=== PATIENT | male | born 1965 | race Caucasian/White ===

== ENCOUNTER 2017-01-02 12:20 | Emergency (ER) | payer SELFPAY ==
[~2017-01-02] VITALS: Ht 193 cm; Wt 98.5 kg
--- OUTSIDE RECORDS SUMMARY | 2017-01-02 12:22 | XMS REPORT | Referral Summary ---
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 Role Phone Sammi Stone Primary Care Physician [phone] Encounter [facility] [id number] Date(s): 01/23/15 - 01/23/15 [facility] [address] [place] [id number] Discharge Diagnosis: Visit for get2play man health check Discharge Diagnosis: OTHER MALAISE AND FATIGUE Discharge Diagnosis: Screening for other and unspecified cardiovascular conditions Discharge Diagnosis: Erectile dysfunction Discharge Diagnosis: Tobacco user Discharge Disposition: 01-Home or Self Care Attending Physician: Kris Stone DO Admitting Physician: Kris Stone DO Vital Signs Most recent to 1 oldest [Reference Range]: Peripheral Pulse 66 bpm Rate [60-100 bpm] (01/23/15 3:39 PM) Blood Pressure 124/80 mmHg [90-140/60-90 mmHg] (01/23/15 3:39 PM) SpO2 98 % (01/23/15 3:39 PM) Problem List Condition Effective Dates Status Health Status Informant Dyslipidemia(Confirm Active ed) Fatigue(Confirmed) Active Erectile Active dysfunction(Confirme d) Tobacco Active patient user(Confirmed) Allergies, Adverse Reactions, Alerts Substance Reaction Severity Status amoxicillin SWELLING Active Medications No Known Medications Results No data available for this section Immunizations No data available for this section Procedures Procedure Date Related Diagnosis Body Site Surgery on left fifth toe Social History Social History Type Response Smoking Status Current every day smoker; Tobacco use per day: Pack; Number of years: 30; Total pack years: 45; Started at age: 17 Assessment and Plan Extracted from: Title: Ambulatory Patient Education Author: Kris Stone DO Date: Family Medicine Preventive Care for Adults, Male A healthy lifestyle and preventive care can promote health and wellness. Preventive health guidelines for men include the following branham practices: A routine yearly physical is a good way to check with your health care provider about your health and preventative screening. It is a chance to share any concerns and updates on your health and to receive a thorough exam. Visit your dentist for a routine exam and preventative care every 6 months. [place] your teeth twice a day and floss once a day. Good oral hygiene prevents tooth decay and gum disease. The frequency of eye exams is based on your age, health, family medical history, use of contact lenses, and other factors. Follow your health care provider's recommendations for frequency of eye exams. Eat a healthy diet. Foods such as vegetables, fruits, whole grains, low- fat dairy products, and lean protein foods contain the nutrients you need without too many calories. Decrease your intake of foods high in solid fats, added sugars, and salt. Eat the right amount of calories for you.Get information about a proper diet from your health care provider, if necessary. Regular physical exercise is one of the most important things you can do for your health. Most adults should get at least 150 minutes of moderate- intensity exercise (any activity that increases your heart rate and causes you to sweat) each week. In addition, most adults need muscle-strengthening exercises on 2 or more days a week. Maintain a healthy weight. The body mass index (BMI) is a screening tool to identify possible weight problems. It provides an estimate of body fat based on height and weight. Your health care provider can find your BMI and can help you achieve or maintain a healthy weight.For adults 20 years and older: A BMI below 18.5 is considered underweight. A BMI of 18.5 to 24.9 is normal. A BMI of 25 to 29.9 is considered overweight. A BMI of 30 and above is considered obese. Maintain normal blood lipids and cholesterol levels by exercising and minimizing your intake of saturated fat. Eat a balanced diet with plenty of fruit and vegetables. Blood tests for lipids and cholesterol should begin at age 20 and be repeated every 5 years. If your lipid or cholesterol levels are high, you are over 50, or you are at high risk for heart disease, you may need your cholesterol levels checked more frequently.Ongoing high lipid and cholesterol levels should be treated with medicines if diet and exercise are not working. If you smoke, find out from your health care provider how to quit. If you do not use tobacco, do not start. Lung cancer screening is recommended for adults aged 5580 years who are at high risk for developing lung cancer because of a history of smoking. A yearly low-dose CT scan of the lungs is recommended for people who have at least a 84-tynn-kejg history of smoking and are a current smoker or have quit within the past 15 years. A pack year of smoking is smoking an average of 1 pack of cigarettes a day for 1 year (for example: 1 pack a day for 30 years or 2 packs a day for 15 years). Yearly screening should continue until the smoker has stopped smoking for at least 15 years. Yearly screening should be stopped for people who develop a health problem that would prevent them from having lung cancer treatment. If you choose to drink alcohol, do not have more than 2 drinks per day. One drink is considered to be 12 ounces (355 mL) of beer, 5 ounces (148 mL) of wine, or 1.5 ounces (44 mL) of liquor. Avoid use of street drugs. Do not share needles with anyone. Ask for help if you need support or instructions about stopping the use of drugs. High blood pressure causes heart disease and increases the risk of stroke. Your blood pressure should be checked at least every 12 years. Ongoing high blood pressure should be treated with medicines, if weight loss and exercise are not effective. If you are 4579 years old, ask your health care provider if you should take aspirin to prevent heart disease. Diabetes screening involves taking a blood sample to check your fasting blood sugar level. This should be done once every 3 years, after age 45, if you are within normal weight and without risk factors for diabetes. Testing should be considered at a younger age or be carried out more frequently if you are overweight and have at least 1 risk factor for diabetes. Colorectal cancer can be detected and often prevented. Most routine colorectal cancer screening begins at the age of 50 and continues through age 75. However, your health care provider may recommend screening at an earlier age if you have risk factors for colon cancer. On a yearly basis, your health care provider may provide home test kits to check for hidden blood in the stool. Use of a small camera at the end of a tube to directly examine the colon (sigmoidoscopy or colonoscopy ) can detect the earliest forms of colorectal cancer. Talk to your health care provider about this at age 50, when routine screening begins. Direct exam of the colon should be repeated every 510 years through age 75, unless early forms of precancerous polyps or small growths are found. People who are at an increased risk for hepatitis B should be screened for this virus. You are considered at high risk for hepatitis B if: You were born in a country where hepatitis B occurs often. Talk with your health care provider about which countries are considered high-risk. Your parents were born in a high-risk country and you have not received a shot to protect against hepatitis B (hepatitis B vaccine) . You have HIV or AIDS. You use needles to inject street drugs. You live with, or have sex with, someone who has hepatitis B. You are a man who has sex with other men (MSM). You get hemodialysis treatment. You take certain medicines for conditions such as cancer, organ transplantation, and autoimmune conditions. Hepatitis C blood testing is recommended for all people born from 1945 through 1965 and any individual with known risks for hepatitis C. Practice safe sex. Use condoms and avoid high-risk sexual practices to reduce the spread of sexually transmitted infections (STIs). STIs include gonorrhea, chlamydia, syphilis, trichomonas, herpes, HPV, and human immunodeficiency virus (HIV). Herpes, HIV, and HPV are viral illnesses that have no cure. They can result in disability, cancer, and . A one-time screening for abdominal aortic aneurysm (AAA) and surgical repair of large AAAs by ultrasound are recommended for men ages 65 to 75 years who are current or former smokers. Healthy men should no longer receive prostate-specific antigen (PSA) blood tests as part of routine cancer screening. Talk with your health care provider about prostate cancer screening. Testicular cancer screening is not recommended for adult males who have no symptoms. Screening includes self-exam, a health care provider exam, and other screening tests. Consult with your health care provider about any symptoms you have or any concerns you have about testicular cancer. Use sunscreen. Apply sunscreen liberally and repeatedly throughout the day. You should seek shade when your shadow is shorter than you. Protect yourself by wearing long sleeves, pants, a wide-brimmed hat, and sunglasses year round, whenever you are outdoors. Once a month, do a whole-body skin exam, using a mirror to look at the skin on your back. Tell your health care provider about new moles, moles that have irregular borders, moles that are larger than a pencil eraser, or moles that have changed in shape or color. Stay current with required vaccines (immunizations ). Influenza vaccine. All adults should be immunized every year. Tetanus, diphtheria, and acellular pertussis (Td, Tdap) vaccine. An adult who has not previously received Tdap or who does not know his vaccine status should receive 1 dose of Tdap. This initial dose should be followed by tetanus and diphtheria toxoids (Td) booster doses every 10 years. Adults with an unknown or incomplete history of completing a 3-dose immunization series with Td -containing vaccines should begin or complete a primary immunization series including a Tdap dose. Adults should receive a Td booster every 10 years. Varicella vaccine. An adult without evidence of immunity to varicella should receive 2 doses or a second dose if he has previously received 1 dose. Human papillomavirus (HPV) vaccine. Males aged 1321 years who have not received the vaccine previously should receive the 3-dose series. Males aged 22 26 years may be immunized. Immunization is recommended through the age of 26 years for any male who has sex with males and did not get any or all doses earlier. Immunization is recommended for any person with an immunocompromised condition through the age of 26 years if he did not get any or all doses earlier. During the 3-dose series, the second dose should be obtained 48 weeks after the first dose. The third dose should be obtained 24 weeks after the first dose and 16 weeks after the second dose. Zoster vaccine. One dose is recommended for adults aged 60 years or older unless certain conditions are present. Measles, mumps, and rubella (MMR) vaccine. Adults born before 1954 generally are considered immune to measles and mumps. Adults born in 1954 or later should have 1 or more doses of MMR vaccine unless there is a contraindication to the vaccine or there is laboratory evidence of immunity to each of the three diseases. A routine second dose of MMR vaccine should be obtained at least 28 days after the first dose for students attending postsecondary schools, health care workers, or international travelers. People who received inactivated measles vaccine or an unknown type of measles vaccine during should receive 2 doses of MMR vaccine. People who received inactivated mumps vaccine or an unknown type of mumps vaccine before 1978 and are at high risk for mumps infection should consider immunization with 2 doses of MMR vaccine. Unvaccinated health care workers born before 1957 who lack laboratory evidence of measles, mumps, or rubella immunity or laboratory confirmation of disease should consider measles and mumps immunization with 2 doses of MMR vaccine or rubella immunization with 1 dose of MMR vaccine. Pneumococcal 13-valent conjugate (PCV13) vaccine. When indicated, a person who is uncertain of his immunization history and has no record of immunization should receive the PCV13 vaccine. An adult aged 19 years or older who has certain medical conditions and has not been previously immunized should receive 1 dose of PCV13 vaccine. This PCV13 should be followed with a dose of pneumococcal polysaccharide (PPSV23) vaccine. The PPSV23 vaccine dose should be obtained at least 8 weeks after the dose of PCV13 vaccine. An adult aged 19 years or older who has certain medical conditions and previously received 1 or more doses of PPSV23 vaccine should receive 1 dose of PCV13. The PCV13 vaccine dose should be obtained 1 or more years after the last PPSV23 vaccine dose. Pneumococcal polysaccharide (PPSV23) vaccine. When PCV13 is also indicated , PCV13 should be obtained first. All adults aged 65 years and older should be immunized. An adult younger than age 65 years who has certain medical conditions should be immunized. Any person who resides in a long-term or long -term care facility should be immunized. An adult smoker should be immunized. People with an immunocompromised condition and certain other conditions should receive both PCV13 and PPSV23 vaccines. People with human immunodeficiency virus (HIV) infection should be immunized as soon as possible after diagnosis. Immunization during chemotherapy or radiation therapy should be avoided. Routine use of PPSV23 vaccine is not recommended for [place] Indians, [place] Natives, or people younger than 65 years unless there are medical conditions that require PPSV23 vaccine. When indicated, people who have unknown immunization and have no record of immunization should receive PPSV23 vaccine. One-time revaccination 5 years after the first dose of PPSV23 is recommended for people aged 1964 years who have chronic kidney failure, nephrotic syndrome, asplenia, or immunocompromised conditions. People who received 12 doses of PPSV23 before age 65 years should receive another dose of PPSV23 vaccine at age 65 years or later if at least 5 years have passed since the previous dose. Doses of PPSV23 are not needed for people immunized with PPSV23 at or after age 65 years. Meningococcal vaccine. Adults with asplenia or persistent complement component deficiencies should receive 2 doses of quadrivalent meningococcal conjugate (MenACWY-D) vaccine. The doses should be obtained at least 2 months apart. Microbiologists working with certain meningococcal bacteria, recruits, people at risk during an outbreak, and people who travel to or live in countries with a high rate of meningitis should be immunized. A first-year college student up through age 21 years who is living in a residence [place] should receive a dose if he did not receive a dose on or after his 16th birthday. Adults who have certain high-risk conditions should receive one or more doses of vaccine. Hepatitis A vaccine. Adults who wish to be protected from this disease, have certain high-risk conditions, work with hepatitis A-infected animals, work in hepatitis A research labs, or travel to or work in countries with a high rate of hepatitis A should be immunized. Adults who were previously unvaccinated and who anticipate close contact with an international adoptee during the first 60 days after arrival in the [place] from a country with a high rate of hepatitis A should be immunized. Hepatitis B vaccine. Adults who wish to be protected from this disease, have certain high-risk conditions, may be exposed to blood or other infectious body fluids, are household contacts or sex partners of hepatitis B positive people, are clients or workers in certain care facilities, or travel to or work in countries with a high rate of hepatitis B should be immunized. Haemophilus influenzae type b (Hib) vaccine. A previously unvaccinated person with asplenia or sickle cell disease or having a scheduled splenectomy should receive 1 dose of Hib vaccine. Regardless of previous immunization, a recipient of a hematopoietic stem cell transplant should receive a 3-dose series 612 months after his successful transplant. Hib vaccine is not recommended for adults with HIV infection. Preventive Service / Frequency Ages 19 to 39 Blood pressure check. / Every 1 to 2 years. Lipid and cholesterol check. / Every 5 years beginning at age 20. Hepatitis C blood test. / For any individual with known risks for hepatitis C. Skin self-exam. / Monthly. Influenza vaccine. / Every year. Tetanus, diphtheria, and acellular pertussis (Tdap, Td) vaccine. / Consult your health care provider. 1 dose of Td every 10 years. Varicella vaccine. / Consult your health care provider. HPV vaccine. / 3 doses over 6 months, if 26 or younger. Measles, mumps, rubella (MMR) vaccine. / You need at least 1 dose of MMR if you were born in 1957 or later. You may also need a second dose. Pneumococcal 13-valent conjugate (PCV13) vaccine. / Consult your health care provider. Pneumococcal polysaccharide (PPSV23) vaccine. / 1 to 2 doses if you smoke cigarettes or if you have certain conditions. Meningococcal vaccine. / 1 dose if you are age 19 to 21 years and a first -year college student living in a residence [place], or have one of several medical conditions. You may also need additional booster doses. Hepatitis A vaccine. / Consult your health care provider. Hepatitis B vaccine. / Consult your health care provider. Haemophilus influenzae type b (Hib) vaccine. / Consult your health care provider. Ages 40 to 64 Blood pressure check. / Every 1 to 2 years. Lipid and cholesterol check. / Every 5 years beginning at age 20. Lung cancer screening. / Every year if you are aged 5580 years and have a 70-kicm-wfez history of smoking and currently smoke or have quit within the past 15 years. Yearly screening is stopped once you have quit smoking for at least 15 years or develop a health problem that would prevent you from having lung cancer treatment. Fecal occult blood test (FOBT) of stool. / Every year beginning at age 50 and continuing until age 75. You may not have to do this test if you get a colonoscopy every 10 years. Flexible sigmoidoscopy or colonoscopy. / Every 5 years for a flexible sigmoidoscopy or every 10 years for a colonoscopy beginning at age 50 and continuing until age 75. Hepatitis C blood test. / For all people born from 1945 through 1965 and any individual with known risks for hepatitis C. Skin self-exam. / Monthly. Influenza vaccine. / Every year. Tetanus, diphtheria, and acellular pertussis (Tdap/Td) vaccine. / Consult your health care provider. 1 dose of Td every 10 years. Varicella vaccine. / Consult your health care provider. Zoster vaccine. / 1 dose for adults aged 60 years or older. Measles, mumps, rubella (MMR) vaccine. / You need at least 1 dose of MMR if you were born in 1957 or later. You may also need a second dose. Pneumococcal 13-valent conjugate (PCV13) vaccine. / Consult your health care provider. Pneumococcal polysaccharide (PPSV23) vaccine. / 1 to 2 doses if you smoke cigarettes or if you have certain conditions. Meningococcal vaccine. / Consult your health care provider. Hepatitis A vaccine. / Consult your health care provider. Hepatitis B vaccine. / Consult your health care provider. Haemophilus influenzae type b (Hib) vaccine. / Consult your health care provider. Ages 65 and over Blood pressure check. / Every 1 to 2 years. Lipid and cholesterol check./ Every 5 years beginning at age 20. Lung cancer screening. / Every year if you are aged 5580 years and have a 69-ixlt-pumz history of smoking and currently smoke or have quit within the past 15 years. Yearly screening is stopped once you have quit smoking for at least 15 years or develop a health problem that would prevent you from having lung cancer treatment. Fecal occult blood test (FOBT) of stool. / Every year beginning at age 50 and continuing until age 75. You may not have to do this test if you get a colonoscopy every 10 years. Flexible sigmoidoscopy or colonoscopy. / Every 5 years for a flexible sigmoidoscopy or every 10 years for a colonoscopy beginning at age 50 and continuing until age 75. Hepatitis C blood test. / For all people born from 1945 through 1965 and any individual with known risks for hepatitis C. Abdominal aortic aneurysm (AAA) screening. / A one-time screening for ages 65 to 75 years who are current or former smokers. Skin self-exam. / Monthly. Influenza vaccine. / Every year. Tetanus, diphtheria, and acellular pertussis (Tdap/Td) vaccine. / 1 dose of Td every 10 years. Varicella vaccine. / Consult your health care provider. Zoster vaccine. / 1 dose for adults aged 60 years or older. Pneumococcal 13-valent conjugate (PCV13) vaccine. / Consult your health care provider. Pneumococcal polysaccharide (PPSV23) vaccine. / 1 dose for all adults aged 65 years and older. Meningococcal vaccine. / Consult your health care provider. Hepatitis A vaccine. / Consult your health care provider. Hepatitis B vaccine. / Consult your health care provider. Haemophilus influenzae type b (Hib) vaccine. / Consult your health care provider. Family history and personal history of risk and conditions may change your health care provider's recommendations. Document Released: 09/20/2002 Document Revised: 05/15/2014 Document Reviewed: [employer] Patient Information 2014 [employer]. No follow up information was provided. Extracted from: Title: [facility] [employer] [facility]SULT[facility] Well Male Exam, ED, Author: Kris Stone DO Date: 01/23/15 tobacco use Impression and Plan Diagnosis Visit for well man health check (ICD9 V70.0, Discharge, Medical). Tobacco user (ICD9 305.1, Discharge, Patient Stated). Screening for other and unspecified cardiovascular conditions (ICD9 V81.2, Discharge, Medical). OTHER MALAISE AND FATIGUE (ICD9 780.79, Discharge, Medical). Erectile dysfunction (ICD9 607.84, Discharge, Medical). Orders Orders (Selected) Outpatient Orders Ordered Initial Comp Preventive Med 40 to 64 years [place] [id number]: Office Visit Level 1 New 25432: Smoking and tobacco use cessation counseling visit 3 to 10 minutes 10605: Future (On Hold) CBC w/ Differential: CMP: Fasting Lipid Profile: TSH with Reflex Free T4: Testosterone, Total, and Free-Luna: . Ordered fasting lipid profile for cholesterol screening. Repeat well male exam in one year. Seems to be doing well. Ordered labs as above for evaluation of the fatigue and erectile dysfunction. Depending on lab results, may need to treat with testosterone replacement which she is agreeable to if testing comes back positive, or may treat with ED medications. I will inform patient when lab results are back and we will schedule him for follow-up appointment. Also may need to discuss cholesterol results depending on what happens there. I did spend a significant amount of time discussing smoking cessation with him today. He will consider this. Follow-up at next visit. 3-10 minutes spent in tobacco cessation counselling.
--- OUTSIDE RECORDS SUMMARY | 2017-01-02 12:22 | XMS REPORT | Continuity of Care Document ---
Author Author [facility] Organization [facility] Address Unknown Phone Unavailable Allergies Active Description Code Type Severity Reaction Onset Reported/Identified Relationship to Patient Clinical Status Yes amoxicillin NKMA N/A SWELLING 12/09/2013 Yes amoxicillin NKMA N/A SWELLING 12/09/2013 Medications Medication Packaging Start Date Stop Date Route Dosage Sig amoxicillin(amoxicillin) 08/09/2014 01/23/2015 traMADol(traMADol 50 mg oral tablet) 1 tabs 08/09/20142014 Oral 50 mg 1 tabs, Oral, q6hr, May increase dosing to 2 tabs if one is not effective, 24 tabs, PRN: Pain Moderate (4-6) ketorolac(ketorolac) 2 mL 08/09/2014 08/12/2014 IntraMuscular 60 mg 60 mg, IntraMuscular, Once varenicline(Chantix Continuing Month 1 mg oral tablet) 1 tabs 03/14/2015 05/01/2015 Oral 1 mg 1 mg=1 tabs, Oral, BID, for 60 days, 60 tabs, 0 Refill(s) varenicline(Chantix Starter Pack 0.5 mg-1 mg oral tablet) 1 tabs 10/01/2016 11/01/2016 Oral 1 tabs, Oral, BID, as directed on package labeling , 53 tabs, 0 Refill(s) sildenafil(Viagra 100 mg oral tablet) 1 tabs 10/01/20162016 Oral 100 mg 100 mg=1 tabs, Oral, Daily, for 30 days, 1 hour before sexual activity, not to exceed 1 tab per 24 hours, 10 tabs, 2 Refill(s) varenicline(Chantix Continuing Month 1 mg oral tablet) 1 tabs 10/01/2016 11/01/2016 Oral 1 mg 1 mg=1 tabs, Oral, BID, for 4 weeks, 56 tabs, 1 Refill(s) sildenafil(Viagra 100 mg oral tablet) 1 tabs 11/01/20162016 Oral 100 mg 100 mg=1 tabs, Oral, Daily, for 30 days, 1 hour before sexual activity, not to exceed 1 tab per 24 hours, 10 tabs, 2 Refill(s) buPROPion(Wellbutrin SR 150 mg/12 hours oral tablet, extended release) 1 tabs 11/01/2016 Oral 150 mg 150 mg=1 tabs, Oral, BID, Take 1 tab daily for first 3 days, 180 tabs, 0 Refill(s) Problems Date Dx Coded Attending Type Code Diagnosis Diagnosed By 08/12/2014 Charlie Dukes Final 305.1 TOBACCO USE DISORDER 08/12/2014 Charlie Dukes Final 522.5 PERIAPICAL ABSCESS WITHOUT SINUS 08/12/2014 Charlie Dukes Reason 525.9 UNSPECIFIED DISORDER OF THE TEETH AND SUPPORTING STRUCTURES Procedures Results Encounters ACCT No. Visit Date/Time Discharge Status Pt. Type Provider Facility Loc./Unit Complaint [id number] 08/09/2014 13:14:00 2014 14:44:00 DIS Emergency Charlie Dukes [facility] ED dental pain/broken tooth [id number] 11/02/2016 05:17:23 Document Registration [id number] 10/02/2016 05:17:49 Document Registration [id number] 05/28/2015 14:08:00 Document Registration [id number] 05/28/2015 12:39:02 Document Registration [id number] 05/28/2015 10:51:37 Document Registration
--- OUTSIDE RECORDS SUMMARY | 2017-01-02 12:22 | XMS REPORT | Referral Summary ---
Author Author [facility] Organization [facility] Address Unknown Phone Unavailable Care Team Providers Care Sap Pp Consultant Name Role Phone Sammi Stone Primary Care Physician [phone] Encounter [facility] [id number] Date(s): 03/14/15 - 03/14/15 [facility] [address] [place] [address] Discharge Diagnosis: Fatigue Discharge Diagnosis: Dyslipidemia Discharge Diagnosis: Tobacco user Discharge Diagnosis: Erectile dysfunction Discharge Disposition: 01-Home or Self Care Attending Physician: Kris Stone DO Admitting Physician: Kris Stone DO Vital Signs Most recent to 1 oldest [Reference Range]: Peripheral Pulse 96 bpm Rate [60-100 bpm] (03/14/15 8:07 AM) Blood Pressure 122/80 mmHg [90-140/60-90 mmHg] (03/14/15 8:07 AM) SpO2 98 % (03/14/15 8:07 AM) Problem List Condition Effective Dates Status Health [...] Author: Kris Stone DO Date: Family Medicine Cholesterol Cholesterol is a white, waxy, fat-like protein needed by your body in small amounts. The liver makes all the cholesterol you need. Cholesterol is carried from the liver by the blood through the blood vessels. Deposits of cholesterol ( plaque) may build up on blood vessel kasper. These make the arteries narrower and stiffer. Cholesterol plaques increase the risk for heart attack and stroke. You cannot feel your cholesterol level even if it is very high. The only way to know it is high is with a blood test. Once you know your cholesterol levels, you should keep a record of the test results. Work with your health care provider to keep your levels in the desired range. WHAT DO THE RESULTS MEAN? Total cholesterol is a rough measure of all the cholesterol in your blood. LDL is the so-called bad cholesterol. This is the type that deposits cholesterol in the kasper of the arteries. You want this level to be low. HDL is the good cholesterol because it cleans the arteries and carries the LDL away. You want this level to be high. Triglycerides are fat that the body can either burn for energy or store. High levels are closely linked to heart disease. WHAT ARE THE DESIRED LEVELS OF CHOLESTEROL? Total cholesterol below 200. LDL below 100 for people at risk, below 70 for those at very high risk. HDL above 50 is good, above 60 is best. Triglycerides below 150. HOW CAN I LOWER MY CHOLESTEROL? Diet. Follow your diet programs as directed by your health care provider. Choose fish or white meat chicken and turkey, roasted or baked. Limit fatty cuts of red meat, fried foods, and processed meats, such as sausage and lunch meats. Eat lots of fresh fruits and vegetables. Choose whole grains, beans, pasta, potatoes, and cereals. Use only small amounts of olive, corn, or canola oils. Avoid butter, mayonnaise, shortening, or palm kernel oils. Avoid foods with trans fats. Drink skim or nonfat milk and eat low-fat or nonfat yogurt and cheeses. Avoid whole milk, cream, ice cream, egg yolks, and full-fat cheeses. Healthy desserts include damien food cake, danielle snaps, animal crackers, hard candy, popsicles, and low-fat or nonfat frozen yogurt. Avoid pastries, cakes, pies, and cookies. Exercise. Follow your exercise programs as directed by your health care provider. A regular program helps decrease LDL and raise HDL. A regular program helps with weight control. Do things that increase your activity level like gardening, walking, or taking the stairs. Ask your health care provider about how you can be more active in your daily life. Medicine. Take medicine as directed by your health care provider. Medicine may be prescribed by your health care provider to help lower cholesterol and decrease the risk for heart disease. If you have several risk factors, you may need medicine even if your levels are normal. Document Released: 04/19/2002 Document Revised: 07/30/2014 Document Reviewed: [facility] Patient Information 2015 [email or web address] This information is not intended to replace advice given to you by your health care provider. Make sure you discuss any questions you have with your health care provider. No follow up information was provided. Extracted from: Title: OV follow-up lab Author: Kris Stone DO Date: 03/14/15 Impression and Plan Diagnosis Dyslipidemia (ICD9 272.4, Discharge, Medical). Erectile dysfunction (ICD9 607.84, Discharge, Medical). Fatigue (ICD9 780.79, Discharge, Medical). Tobacco user (ICD9 305.1, Discharge, Medical). Orders Orders (Selected) Outpatient Orders Canceled Fasting Lipid Profile: Prescriptions Prescribed Chantix Continuing Month 1 mg oral tablet: 1 mg=1 tabs, Oral, BID, for 60 days, 60 tabs, 0 Refill(s). Patient was given the first 2 weeks of Chantix and I did counselor aid him on how to use the medication. Also gave him some samples of 50 and 100 mg Viagra. Counseled him on appropriate usage. Attempts to get 8 hours of sleep per night to see if this helps with the fatigue. Counseled on dietary changes for the dyslipidemia and did encourage him to perform 150 minutes of aerobic exercise per week divided into at least 3 days. Hopefully stopping smoking will help with this. Call with any questions or concerns before his return visit in one month to follow-up on medications.
--- OUTSIDE RECORDS SUMMARY | 2017-01-02 12:23 | XMS REPORT | Referral Summary ---
Author Author [facility] Organization [facility] Address Unknown Phone Unavailable Care Team Providers Care Boring Machine Set Up Operator Jig Name Role Phone Sammi Stone Primary Care Physician [phone] Encounter [facility] Date(s): 05/01/15 - 05/01/15 [facility], [facility] Medicine [address] [place] [address] Discharge Diagnosis: Fatigue Discharge Diagnosis: Tobacco user Discharge Diagnosis: Erectile dysfunction Discharge Disposition: 01-Home or Self Care Attending Physician: Kris Stone DO Admitting Physician: Kris Stone DO Vital Signs Most recent to 1 oldest [Reference Range]: Peripheral Pulse 89 bpm Rate [60-100 bpm] (05/01/15 11:02 AM) Blood Pressure 130/80 mmHg [90-140/60-90 mmHg] (05/01/15 11:02 AM) SpO2 98 % (05/01/15 11:02 AM) Problem List Condition Effective Dates Status [...] Author: Kris Stone DO Date: Family Medicine Smoking Cessation Quitting smoking is important to your health and has many advantages. However, it is not always easy to quit since nicotine is a very addictive drug. Oftentimes, people try 3 times or more before being able to quit. This document explains the best ways for you to prepare to quit smoking. Quitting takes hard work and a lot of effort, but you can do it. ADVANTAGES OF QUITTING SMOKING You will live longer, feel better, and live better. Your body will feel the impact of quitting smoking almost immediately. Within 20 minutes, blood pressure decreases. Your pulse returns to its normal level. After 8 hours, carbon monoxide levels in the blood return to normal. Your oxygen level increases. After 24 hours, the chance of having a heart attack starts to decrease. Your breath, hair, and body stop smelling like smoke. After 48 hours, damaged nerve endings begin to recover. Your sense of taste and smell improve. After 72 hours, the body is virtually free of nicotine. Your bronchial tubes relax and breathing becomes easier. After 2 to 12 weeks, lungs can hold more air. Exercise becomes easier and circulation improves. The risk of having a heart attack, stroke, cancer, or lung disease is greatly reduced. After 1 year, the risk of coronary heart disease is cut in half. After 5 years, the risk of stroke falls to the same as a nonsmoker. After 10 years, the risk of lung cancer is cut in half and the risk of other cancers decreases significantly. After 15 years, the risk of coronary heart disease drops, usually to the level of a nonsmoker. If you are , quitting smoking will improve your chances of having a healthy baby. The people you live with, especially any children, will be healthier. You will have extra money to spend on things other than cigarettes. QUESTIONS TO THINK ABOUT BEFORE ATTEMPTING TO QUIT You may want to talk about your answers with your health care provider. Why do you want to quit? If you tried to quit in the past, what helped and what did not? What will be the most difficult situations for you after you quit? How will you plan to handle them? Who can help you through the tough times? Your family? Friends? A health care provider? What pleasures do you get from smoking? What ways can you still get pleasure if you quit? Here are some questions to ask your health care provider: How can you help me to be successful at quitting? What medicine do you think would be best for me and how should I take it? What should I do if I need more help? What is smoking withdrawal like? How can I get information on withdrawal? GET READY Set a quit date. Change your environment by getting rid of all cigarettes, ashtrays, matches , and lighters in your home, car, or work. Do not let people smoke in your home. Review your past attempts to quit. Think about what worked and what did not. GET SUPPORT AND ENCOURAGEMENT You have a better chance of being successful if you have help. You can get support in many ways. Tell your family, friends, and coworkers that you are going to quit and need their support. Ask them not to smoke around you. Get individual, group, or telephone counseling and support. Programs are available at local hospitals and health centers. Call your local health department for information about programs in your area. Spiritual beliefs and practices may help some smokers quit. Download a "quit meter" on your computer to keep track of quit statistics, such as how long you have gone without smoking, cigarettes not smoked, and money saved. Get a self-help book about quitting smoking and staying off tobacco. LEARN NEW SKILLS AND BEHAVIORS Distract yourself from urges to smoke. Talk to someone, go for a walk, or occupy your time with a task. Change your normal routine. Take a different route to work. Drink tea instead of coffee. Eat breakfast in a different place. Reduce your stress. Take a hot bath, exercise, or read a book. Plan something enjoyable to do every day. Reward yourself for not smoking. Explore interactive web-based programs that specialize in helping you quit. GET MEDICINE AND USE IT CORRECTLY Medicines can help you stop smoking and decrease the urge to smoke. Combining medicine with the above behavioral methods and support can greatly increase your chances of successfully quitting smoking. Nicotine replacement therapy helps deliver nicotine to your body without the negative effects and risks of smoking. Nicotine replacement therapy includes nicotine gum, lozenges, inhalers, nasal sprays, and skin patches. Some may be available [id number] and others require a prescription. Antidepressant medicine helps people abstain from smoking, but how this works is unknown. This medicine is available by prescription. Nicotinic receptor partial agonist medicine simulates the effect of nicotine in your brain. This medicine is available by prescription. Ask your health care provider for advice about which medicines to use and how to use them based on your health history. Your health care provider will tell you what side effects to look out for if you choose to be on a medicine or therapy. Carefully read the information on the package. Do not use any other product containing nicotine while using a nicotine replacement product. RELAPSE OR DIFFICULT SITUATIONS Most relapses occur within the first 3 months after quitting. Do not be discouraged if you start smoking again. Remember, most people try several times before finally quitting. You may have symptoms of withdrawal because your body is used to nicotine. You may crave cigarettes, be irritable, feel very hungry, cough often, get headaches, or have difficulty concentrating. The withdrawal symptoms are only temporary. They are strongest when you first quit, but they will go away within 1014 days. To reduce the chances of relapse, try to: Avoid drinking alcohol. Drinking lowers your chances of successfully quitting. Reduce the amount of caffeine you consume. Once you quit smoking, the amount of caffeine in your body increases and can give you symptoms, such as a rapid heartbeat, sweating, and anxiety. Avoid smokers because they can make you want to smoke. Do not let weight gain distract you. Many smokers will gain weight when they quit, usually less than 10 pounds. Eat a healthy diet and stay active. You can always lose the weight gained after you quit. Find ways to improve your mood other than smoking. FOR MORE INFORMATION www.smokefree.gov Document Released: 07/19/2002 Document Revised: 12/09/2014 Document Reviewed: ExitCare Patient Information 2015 [facility]. This information is not intended to replace advice given to you by your health care provider. Make sure you discuss any questions you have with your health care provider. No follow up information was provided. Extracted from: Title: OV follow-up tobacco use, Author: Kris Stone DO Date: 05/01/15 fatigue, erectile dysfunction Impression and Plan Diagnosis Tobacco user (ICD9 305.1, Discharge, Medical). Fatigue (ICD9 780.79, Discharge, Medical). Erectile dysfunction (ICD9 607.84, Discharge, Medical). Orders Orders (Selected) Outpatient Orders Future (On Hold) Testosterone, Total, and Free-Luna: . Previously had low end normal free testosterone levels with total testosterone levels well in the normal range. I think this is worth rechecking. Patient will return in the morning to have blood work redrawn and he will be informed of these results when they become available. If results are similar, may consider trial of Depakote testosterone injections to see if these help with his symptoms, although I did inform him that there is a chance that insurance won't pay for it based on his levels. Patient does voice understanding and says that he may be willing to pay out of pocket for these if it helps since he is starting to have some issues with his marriage related to the symptoms. I can refill the Viagra when needed. Patient was given a sample for the starter pack of Chantix today and he will try this medication again. If it causes shoulder pain again, he was instructed to discontinue the medication and we will discuss a different option when I see him back in approximately 1 month. Patient informed that I we can start the injections prior to his next visit and follow-up on the effectiveness then if the decision is made to do this.
--- OUTSIDE RECORDS SUMMARY | 2017-01-02 12:23 | XMS REPORT | Referral Summary ---
Author Author [facility] Organization [facility] Address Unknown Phone Unavailable Care Team Providers Care Curtain Inspector Name Role Phone Sammi Stone Primary Care Physician [phone] Encounter Date(s): 08/13/16 - 08/13/16 [facility] , Immediate Care [address] [place], [place] [address] Discharge Diagnosis: Tooth abscess Discharge Disposition: 01-Home or Self Care Attending Physician: Bhumika Hansen Attending Physician: Provider, Immediate Care Admitting Physician: Provider, Immediate Care Vital Signs Most recent to 1 oldest [Reference Range]: Temperature Oral 36.6 degC [35.8-37.3 degC] (08/13/16 4:35 PM) Peripheral Pulse 78 bpm Rate [60-100 bpm] (08/13/16 4:35 PM) Blood Pressure 130/80 mmHg [90-140/60-90 mmHg] (08/13/16 4:35 PM) SpO2 98 % (08/13/16 4:35 PM) Problem List Condition Effective Dates Status [...] 15 Assessment and Plan Extracted from: Title: Office Visit Note Author: Bhumika Hansen Date: 08/13/16 Assessment/Plan Patient hasseveral dental problems hehas some tenderness along his posterior jaw around [id number] molar. He has pain at his lateral jaw on the left side. He does have some otitis serous on the left. We'll go ahead and send out azithromycin. Recommend that he follow-up with the dentist. For his congestion and drainage she should try Mucinex. Follow-up if worsening of symptoms or no improvementin 3-5 days. He voiced understanding and agreement with this plan. Tooth abscess Ordered: Office Visit Level 3 Est [address]30
--- OUTSIDE RECORDS SUMMARY | 2017-01-02 12:23 | XMS REPORT | Referral Summary ---
Author Author [facility] Organization [facility] Address Unknown Phone Unavailable Care Team Providers Care Medical Device Engineer Name Role Phone Sammi Stone Primary Care Physician [phone] Encounter [facility] [id number] Date(s): 10/01/16 - 10/01/16 [facility] Family Medicine [address] [address] [[email or web address] Discharge Diagnosis: Dyslipidemia Discharge Diagnosis: Erectile dysfunction Discharge Diagnosis: Tobacco user Discharge Disposition: 01-Home or Self Care Attending Physician: Gisela Whittington APRN Admitting Physician: Gisela Whittington APRN Vital Signs Most recent to 1 oldest [Reference Range]: Temperature Oral 36.1 degC [35.8-37.3 degC] (10/01/16 7:48 AM) Peripheral Pulse 57 bpm Rate [60-100 bpm] *LOW* (10/01/16 7:48 AM) Respiratory Rate 20 br/min [14-20 br/min] (10/01/16 7:48 AM) Blood Pressure 110/76 mmHg [90-140/60-90 mmHg] (10/01/16 7:48 AM) SpO2 97 % (10/01/16 7:48 AM) Problem List Condition Effective Dates Status Health Status Informant Fatigue(Confirmed) Active Dyslipidemia(Confirm Active ed) Erectile Active dysfunction(Confirme d) Tobacco Active patient user(Confirmed) Allergies, Adverse Reactions, Alerts Substance Reaction Severity Status amoxicillin SWELLING Active Medications Chantix Continuing Month 1 mg oral tablet 1 mg 1 tabs, Oral, BID, X 4 weeks, # 56 tabs, 1 Refill(s), Pharmacy: [id number], 1 tabs Oral BID,x4 weeks Start Date: 10/01/16 Stop Date: 11/26/16 Status: Ordered Chantix Starter Pack 0.5 mg-1 mg oral tablet 1 tabs, Oral, BID, as directed on package labeling, # 53 tabs, 0 Refill(s), Pharmacy: [id number] Start Date: 10/01/16 Status: Ordered Viagra 100 mg oral tablet 100 mg 1 tabs, Oral, Daily, 1 hour before sexual activity, # 10 tabs, 0 Refill(s ), Pharmacy: [id number], 1 tabs Oral Daily,Instr:1 hour before sexual activity Start Date: 09/23/16 Status: Ordered Viagra 100 mg oral tablet 100 mg 1 tabs, Oral, Daily, 1 hour before sexual activity, not to exceed 1 tab per 24 hours, # 10 tabs, 2 Refill(s), Pharmacy: [id number], 1 tabs Oral Daily,x30 days,Instr:1 hour before sexual activity, not to exceed 1 tab per 24 hours Start Date: 10/01/16 Stop Date: 12/30/16 Status: Ordered Results No data available for this section [...] Extracted from: Title: Office Visit Note Author: Gisela Whittington APRN Date: 10/01/16 Assessment/Plan 1.Tobacco user Chantix starter and continuing packs, CMP, follow up as needed 2.Erectile dysfunction Viagra 100mg samples #4, coupon, Rx #10 with refill x 2 3.Dyslipidemia lipid panel Patient will schedule annual physical with Dr. Stone
--- OUTSIDE RECORDS SUMMARY | 2017-01-02 12:23 | XMS REPORT | Referral Summary ---
Author Author [facility] Family Medicine Organization [facility] Address Unknown Phone Unavailable Care Team Providers Care Insulation Mechanic Name Role Phone Sammi Stone Primary Care Physician [phone] Encounter [facility] Date(s): 05/01/15 - 05/01/15 [facility] [address], [facility] Medicine [address] [place] [address] Discharge Diagnosis: Fatigue Discharge Diagnosis: Tobacco [...] and skin patches. Some may be available [id number] and others require a prescription. Antidepressant medicine [...] 12/09/2014 Document Reviewed: ExitCare Patient Information 2015 [facility] Center[facility]angel[facility]. This information is not intended to replace [...]
--- OUTSIDE RECORDS SUMMARY | 2017-01-02 12:23 | XMS REPORT | Referral Summary ---
Author Author [facility] Family Medicine Organization [facility] Address Unknown Phone Unavailable Care Team Providers Care Flasher Adjuster Name Role Phone Sammi Stone Primary Care Physician [phone] Encounter [facility] Date(s): 05/01/15 - 05/01/15 [facility] [address], [facility] Medicine [address] [place] [id number] Discharge Diagnosis: Fatigue Discharge Diagnosis: Tobacco [...] and skin patches. Some may be available [id number] and others require a prescription. Antidepressant medicine [...] 12/09/2014 Document Reviewed: ExitCare Patient Information [address] [facility] This information is not intended to replace [...]
[2017-01-02 12:28] VITALS: BP 129/80; PULSE 91; RESP 20; TEMP 98.4; O2SAT 96; Ht 193 cm; Wt 98.5 kg
--- NOTE | 2017-01-02 12:30 | NUR ---
KATHYA GAN IN
[2017-01-02] MEDS ORDERED: SILD50TA PO (12:38)
--- NOTE | 2017-01-02 12:38 | ERPDOC ---
Departure Disposition Decision Date: January 02, 2017 Disposition Decision Time: 12:40 Disposition: 01 DISCHARGED HOME, SELF-CARE Impression Impression Impression: Primary Impression: Scabies Severity: Moderate Condition: Stable Seen By: Mid-level only Patient Instructions: Scabies (ED) Problems/Meds/Labs Reviewed?: Yes Medications reviewed and manag: Yes Additional Instructions: I do want you to use the Permethrin cream as prescribed. Make sure to treat your bedding and furniture at home. If the itching is not improving over the next week may repeat the Permethrin. If not improving at all then please follow up with your primary care provider. Follow up care ordered?: Yes Mental Status: Alert Scripts Permethrin (Permethrin) 60 Gm Cream..g. 1 APPLIC TD ONE TIME, #60 G 1 Refill Prov: NATHANIEL HINTON Sada GAN 01/02/17 HPI - Skin General General Stated Complaint: RASH Time Seen by Provider: 12:23 Source: patient Exam Limitations: no limitations HPI - Skin General Initial Comments Over the last week he has noticed an increased rash. Started between his fingers on his hands and has spread to his trunk and his extremities. The rash is very itchy. He has not had a fever or chills or any other symptoms. Has not tried anything for the rash so far. He did buy a new mattress about a month ago but it was new from the store. Has not stayed at any hotels or any other houses in the last month. Occurred At: home Onset: Gradual Duration: 1 week Severity: moderate Location: torso, hands, extremities Possible Cause: no cause identified Associated Symptoms: rash, DENIES: blisters, change in skin texture, edema, fever, flushing, headache, hives, jaundice, malaise, nasal congestion, numbness , pallor, paresthesia, petechiae, sore throat, swelling/mass/lumps, tingling Hx of Similar Symptoms: No Allergies: Coded Allergies: amoxicillin (Verified Allergy, Unknown, 01/02/17) Past History Past Medical History Pt denies signifigant PMH Surgical History Denies Surgeries Family History Family History: Negative Family PMH: FOUND: other Social History Smoking Status: Never smoker Substance Use Type: does not use Alcohol Intake: none Review of Systems Constitutional Constitutional: DENIES: chills, dizziness, fatigue, fever, weakness Cardiovascular Cardiac: DENIES: chest pain, orthopnea Rhythm/Rate: DENIES: irregular beat, palpitations Pulmonary Respiratory: DENIES: cough, dyspnea, sputum, tachypnea GI Upper Abdomen: DENIES: nausea, pain, vomiting Lower Abdomen: DENIES: constipation, diarrhea, pain Integumentary Skin: itching, rash Neurological General: DENIES: headache, numbness, tingling, weakness Physical Exam General General Nourishment: well nourished, well developed, appears stated age, no acute distress, adult General Body Habitus: well groomed Vitals and Pain First Documented Vital Signs Date Time Temp Pulse Resp B/P Pulse Ox O2 Delivery O2 Flow Rate FiO2 01/02/17 12:28 98.4 91 20 129/80 96 Room Air Weight: Kilograms: Height (feet): Height (inches): Triage Pain Scale: RN VS reviewed by Provider: Yes Normal Exams: Neck: Full range of motion, without adenopathy, JVD, bruits or thyromegaly Chest/Resp: Clear all perez, with good airflow, and symmetry bilaterally CV: Regular rate and rhythm, without murmur or gallop, Pulses 2+ all extremities, capillary refill, <2 seconds all ext., no pedal edema noted Abdomen: Bowel sounds positive, soft, non-tender, non-distended, no hepatosplenomegaly, masses or bruits noted Lymphatic: No lymphadenopathy, or lymphedema noted Musculoskeletal: No tenderness, or deformity noted, good range of motion, all extremities Neurologic: Patient is alert, and oriented Psychiatric: Patient exhibits, appropriate attention, emotion and affect Integumentary (brief) Integumentary Brief: FOUND: rash (There is a light pink papular rash that is all over the trunk and the extremities. This rash is noted between the fingers as well with some scaling here. No pustules noted.) Differential Diagnoses Considering: Bite, Cellulitis, Chickenpox, Contact Dermatitis, Scabies, Varicella/Shingles, Viral Exanthem Progress Progress Progress Will have him use some Permethrin cream today. I did advise that he make sure to treat his bedding and furniture at home. Have him follow up with his PCP if this is not improving however. NATHANIEL HINTON APRN January 02, 2017 12:38
[2017-01-02] MEDS ORDERED: PERM60CR4 TD (12:42)
--- OUTSIDE RECORDS SUMMARY | 2017-01-02 12:42 | XMS REPORT | Continuity of Care Document ---
Author Author [facility] Organization [facility] Address Unknown Phone Unavailable Allergies Active Description [...] Status Pt. Type Provider Facility Loc./Unit Complaint [id number] 08/09/2014 13:14:00 2014 14:44:00 DIS Emergency Charlie Dukes [facility] ED dental pain/broken tooth [id number] 11/02/2016 05:17:23 Document Registration [id number] 10/02/2016 05:17:49 Document Registration [id number] 05/28/2015 14:08:00 Document Registration [id number] 05/28/2015 12:39:02 Document Registration [id number] 05/28/2015 10:51:37 Document Registration
== END 2017-01-02 12:45 | disposition home or self-care (01) ==
LOC: ED 12:20
DX: B86 Scabies (principal)